=== PATIENT | male | born 1970 | race African-American/Black ===

== ENCOUNTER 2019-02-14 19:23 | Emergency (ER) | payer SELFPAY ==
[~2019-02-14] VITALS: Ht 182.9 cm; Wt 91.0 kg
[2019-02-14 20:36] LABS: CLARITY URINE CLEAR (CLEAR); COLOR URINE YELLOW (YELLOW); KETONES URINE NEGATIVE (NEGATIVE); LEUKOCYTE ESTERASE URINE NEGATIVE (NEGATIVE); NITRITE URINE NEGATIVE (NEGATIVE); OCCULT BLOOD URINE 1+ (NEGATIVE); PH URINE 5.5 (4.5-8.0); PROTEIN URINE 2+ (NEGATIVE); SPECIFIC GRAVITY URINE 1.009 (1.005-1.030); UROBILINOGEN URINE 0.2 E.U./dL (0.2-1.0)
[2019-02-14 20:36] LABS: BASOPHILS % 1.1 % (0.0-2.0); EOSINOPHILS % 0.6 % (0.0-5.0); HEMATOCRIT. 45.7 % (42.0-52.0); HEMOGLOBIN. 15.3 g/dL (14.0-18.0); MEAN CORPUSCULAR HEMOGLOBIN 29.4 pg (28.0-32.0); MEAN CORPUSCULAR VOLUME 87.9 fL (80.0-94.0); MEAN PLATELET VOLUME 6.8 fl (7.4-10.4); MONOCYTES % 10.2 % (2.0-8.0); NEUTROPHILS % 52.1 % (40.0-76.0); PLATELET 301 x1000/uL (130-400); RED CELL DISTRIBUTION WIDTH 15.9 % (11.6-14.6)
[2019-02-14 20:40] LABS: CHLORIDE 110 mEq/L (98-107)
[2019-02-14] MEDS ORDERED: LORAZEPAM 2MG/ML CPJ IM ONE (20:45)
[2019-02-14 20:46] LABS: *BENZODIAZEPINES SCREEN URINE NEGATIVE (NEGATIVE)
[2019-02-14 20:47] LABS: *AMPHETAMINES SCREEN URINE NEGATIVE (NEGATIVE); *COCAINE SCREEN URINE NEGATIVE (NEGATIVE); CANNABINOID URINE SCREEN PRESUMTIVE POSITIVE (NEGATIVE); METHADONE URINE SCREEN NEGATIVE (NEGATIVE); OPIATES URINE SCREEN NEGATIVE (NEGATIVE); PHENCYCLIDINE URINE SCREEN NEGATIVE (NEGATIVE)
[2019-02-14 20:48] LABS: *BARBITURATES SCREEN URINE NEGATIVE (NEGATIVE)
[2019-02-14 20:54] LABS: ETHANOL BLOOD 533 mg/dL
[2019-02-15 07:30] VITALS: BP 152/88
== END 2019-02-15 07:48 | disposition home or self-care (01) ==
LOC: ER 19:23
DX: S02.40FA Zygomatic fracture, left side, initial encounter for closed fracture (principal); F10.129 Alcohol abuse with intoxication, unspecified; R41.82 Altered mental status, unspecified; F12.10 Cannabis abuse, uncomplicated; R31.9 Hematuria, unspecified; K04.90 Unspecified diseases of pulp and periapical tissues; Z59.0 Homelessness; W18.39XA Other fall on same level, initial encounter; Y93.89 Activity, other specified; Y92.89 Other specified places as the place of occurrence of the external cause; Y99.8 Other external cause status
CPT/HCPCS: 36415; 70450; 80053; 80305; 80320; 81003; 82962; 85025; 96372; 99284; J2060; Z7610; G0480